=== PATIENT | male | born 1940 | race Hispanic/Latino ===

== ENCOUNTER 2018-02-12 22:44 | Inpatient (IN) | payer BC, MEDICARE ==
[~2018-02-12] VITALS: Ht 165.1 cm; Wt 55.8 kg
[~2018-02-12 22:44] MED LIST: ALFUZOSIN HCL10 MG; AVODART0.5 MG PO; [UNRECOGNIZED DRUG - OTHER] PO; [UNRECOGNIZED DRUG - OTHER] PO
[2018-02-12] MEDS ORDERED: ONDANSETRON HCL INJ 2 MG/ML VIAL IV STA (23:00)
[2018-02-12] MEDS ORDERED: PANTOPRAZOLE 40 MG 10ML VIAL IV STA (23:00)
[2018-02-12 23:13] LABS: BASOPHILS % 0.4 % (0.0-1.0); EOSINOPHILS # (AUTO) 0.2 (0.0-0.4); EOSINOPHILS % 1.8 % (0.0-6.0); HEMATOCRIT 38.2 % (38.2-49.6); HEMOGLOBIN 12.5 g/dL (14.0-18.0); LYMPHOCYTES # (AUTO) 2.2 (1.0-3.2); LYMPHOCYTES % 24.6 % (18.0-39.1); MEAN CORPUSCULAR HEMOGLOBIN 28.9 pg (28-32); MEAN CORPUSCULAR HGB CONC 32.7 g/dL (31-35); MEAN CORPUSCULAR VOLUME 88.4 fL (81-99); MONOCYTES # (AUTO) 0.7 (0.2-0.8); NEUTROPHILS # (AUTO) 5.9 (2.1-6.9); NEUTROPHILS % 64.9 % (38.7-80.0); PLATELET COUNT 188 x10e3/uL (140-360); RED BLOOD COUNT 4.32 x10e6/uL (4.3-5.7); RED CELL DISTRIBUTION WIDTH 14.2 % (11.7-14.4)
[2018-02-12 23:16] LABS: CLARITY,URINE CLEAR (CLEAR); COLOR,URINE YELLOW (YELLOW)
[2018-02-12 23:17] LABS: BILIRUBIN,URINE NEGATIVE (NEGATIVE); EPITHELIAL CELLS,URINE RARE /LPF; KETONES,URINE NEGATIVE (NEGATIVE); LEUKOCYTE ESTERASE ,URINE NEGATIVE (NEGATIVE); NITRITE,URINE NEGATIVE (NEGATIVE); PROTEIN,URINE DIPSTICK NEGATIVE (NEGATIVE); RBC,URINE 0-5 /HPF (0-5); URINE UROBILINOGEN 0.2 mg/dL (0.2 - 1); WBC,URINE (MAN) 0-5 /HPF (0-5)
[2018-02-12 23:26] LABS: ALANINE AMINOTRANSFERASE 11 IU/L (0-55); ALBUMIN 3.7 g/dL (3.5-5.0); ALBUMIN/GLOBULIN RATIO 1.1 (0.8-2.0); ALKALINE PHOSPHATASE 73 IU/L (40-150); AMYLASE 69 U/L (25-125); ANION GAP 12.8 mmol/L (8-16); BLOOD UREA NITROGEN 14 mg/dL (7-26); BUN/CREATININE RATIO 16 (6-25); CALCIUM 9.3 mg/dL (8.4-10.2); CARBON DIOXIDE 23 mmol/L (22-29); CHLORIDE 105 mmol/L (98-107); CREATININE, SERUM 0.89 mg/dL (0.72-1.25); EST GLOMERULAR FILTRATION RATE > 60 ML/MIN (60-); GLUCOSE 141 mg/dL (74-118); LIPASE 35 U/L (8-78); POTASSIUM 3.8 mmol/L (3.5-5.1); SODIUM 137 mmol/L (136-145)
[2018-02-12] MEDS ORDERED: DIATRIZOATE MEGL/DIATRIZOA SOD 30 ML BTL PO ONE (23:26)
[2018-02-13] MEDS ORDERED: SODIUM CHLORIDE 0.9% 50ML 50 ML ONE ×2 (00:13→01:16)
[2018-02-13] MEDS ORDERED: IOPAMIDOL 370 MG/ML 200 ML INFUS..BTL INJ ONE (00:13)
[2018-02-13] MEDS ORDERED: ONDANSETRON HCL INJ 2 MG/ML VIAL IV STA (01:01)
[2018-02-13] MEDS ORDERED: MORPHINE SULFATE 2 MG/ML SYR IV STA (01:01)
--- NOTE | 2018-02-13 01:09 | Diagnostic Imaging Report ---
EXAM: CT ABDOMEN AND PELVIS with IV CONTRAST DATE: 02/13/2018 12:00 AM Time stamp on Exam: 0027 hours INDICATION: Abdominal pain and nausea COMPARISON: None available TECHNIQUE: The abdomen and pelvis were scanned using a multidetector helical scanner. Coronal and sagittal reformations were obtained. Dose modulation, iterative reconstruction, and/or weight based adjustment of the mA/kV was utilized to reduce the radiation dose to as low as reasonably achievable. Routine protocol performed. IV Contrast: 100 cc Isovue-370 Oral Contrast: Gastrografin FINDINGS: LOWER THORAX: No consolidations LIVER: No masses BILIARY: The gallbladder is unremarkable. No ductal dilation. SPLEEN: No masses PANCREAS: No masses ADRENALS: No nodules KIDNEYS: Symmetric perfusion. No enhancing masses. No hydronephrosis. Cortical cyst measuring 1.1 cm superior pole of the right kidney. Simple cyst measuring 2.1 cm inferior pole of the left kidney. GI TRACT: The appendix is dilated to 1.3 cm with mild periappendiceal inflammatory changes. There is an appendicolith at its base. Remainder of the bowel is unremarkable. VESSELS: Unremarkable PERITONEUM/RETROPERITONEUM: No free air or fluid LYMPH NODES: No lymphadenopathy REPRODUCTIVE ORGANS: The prostate is enlarged and heterogeneous measuring 5.6 cm in transverse diameter. Partially visualized left hydrocele. BLADDER: There is either a bladder mass or protrusion of the prostate into the bladder base. SOFT TISSUES: Unremarkable BONES: No suspicious bone lesions. IMPRESSION: Acute appendicitis without evidence of perforation. This finding was discussed with Dr. Ledezma February 13, 2018 at 0100 hours. Additional finding of enlarged and heterogeneous prostate with protrusion into the bladder base versus separate posterior bladder mass. An ultrasound of the bladder is recommended when clinically feasible. Signed by: Dr. Daina Brice M.D. on 02/13/2018 1:06 AM
[2018-02-13] MEDS ORDERED: ACETAMINOPHEN 1000 MG/100 ML IV PRN (01:15)
[2018-02-13] MEDS ORDERED: MORPHINE SULFATE 2 MG/ML SYR IV PRN (01:15)
[2018-02-13] MEDS ORDERED: ONDANSETRON HCL INJ 2 MG/ML VIAL IV PRN (01:15)
[2018-02-13] MEDS: SODIUM CHLORIDE 0.9% 1000ML 1,000 ML IV SCH ×3 (01:24→22:22)
[2018-02-13] MEDS: PIPER-TAZ 3.375 GM 50 ML IV SCH ×4 (01:24→22:22)
--- OUTSIDE RECORDS SUMMARY | 2018-02-13 01:39 | XMS REPORT ---
Author Author [facility] Address Unknown Phone Unavailable Care Team Providers Care [place] Room Operator Name Role Phone Lashonda DAVIS Unavailable Unavailable Problems This patient has no known problems. Allergies, Adverse Reactions, Alerts This patient has no known allergies or adverse reactions. Medications This patient has no known medications. Results Test Description Test Time Test Comments Text Results Atomic Results Result Comments CT ABDOMEN/PELVIS W 2018-02-13 00:57:00 [place] [address] Patient Name: JULIOCESAR CASTILLO MR #: [id number] : 1940 Age/Sex: 77/M Req #: [id number] Adm Physician: Ordered by: CASE DAVIS MD Report #: [id number] Location: ER Room/Bed: Procedure: [id number] CT/CT ABDOMEN/PELVIS W Exam Date: Exam Time: REPORT STATUS: Signed EXAM: CT ABDOMEN AND PELVIS with IV CONTRAST DATE: 02/13/2018 12:00 AM Time stamp on Exam: 0027 hours INDICATION: Abdominal pain and nausea COMPARISON: None available TECHNIQUE: The abdomen and pelvis were scanned using a multidetector helical scanner. Coronal and sagittal reformations were obtained. Dose modulation, iterative reconstruction, and/or weight based adjustment of the mA/kV was utilized to reduce the radiation dose to as low as reasonably achievable. Routine protocol performed. IV Contrast: 100 cc Isovue-370 Oral Contrast: Gastrografin FINDINGS: LOWER THORAX: No consolidations LIVER: No masses BILIARY: The gallbladder is unremarkable. No ductal dilation. SPLEEN: No masses PANCREAS: No masses ADRENALS: No nodules KIDNEYS: Symmetric perfusion. No enhancing masses. No hydronephrosis. Cortical cyst measuring 1.1 cm superior pole of the right kidney. Simple cyst measuring 2.1 cm inferior pole of the left kidney. GI TRACT: The appendix is dilated to 1.3 cm with mild periappendiceal infl ammatory changes. There is an appendicolith at its base. Remainder of the bowel is unremarkable. VESSELS: Unremarkable PERITONEUM/RETROPERITONEUM: No free air or fluid LYMPH NODES: No lymphadenopathy REPRODUCTIVE ORGANS: The prostate is enlarged and heterogeneous measuring 5.6 cm in transverse diameter. Partially visualized left hydrocele. BLADDER: There is either a bladder mass or protrusion of the prostate into the bladder base. SOFT TISSUES: Unremarkable BONES: No suspicious bone lesions. IMPRESSION: Acute appendicitis without evidence of perforation. This finding was discussed with Dr. Davis February 13, 2018 at 0100 hours. Additional finding of enlarged and heterogeneous prostate with protrusion into the bladder base versus separate posterior bladder mass. An ultrasound of the bladder is recommended when clinically feasible. Signed by: Dr. Huseyin Brice M.D. on 02/13/2018 1:06 AM Dictated By: HUSEYIN BRICE MD 5 Transcribed By: JEANA on 02/13/18105 COPY TO: CASE DAVIS MD
[2018-02-13] MEDS ORDERED: ALFUZOSIN HCL10 MG PO (01:51)
[2018-02-13 02:52] VITALS: BP 144/69
[2018-02-13 05:22] VITALS: BP 153/73
[2018-02-13 08:00] VITALS: BP_SYST 131; BP_SYST 153; BP_DIAS 73; BP_DIAS 74
--- NOTE | 2018-02-13 11:09 | History and Physical ---
REFERRING PHYSICIAN: Dr. Ledezma. CHIEF COMPLAINT: Abdominal pain and difficulty urinating. HISTORY OF PRESENT ILLNESS: The patient is a 77-year-old man. He has a history of benign prostatic hypertrophy and takes medication for this. Yesterday, he noticed some pain in his back and upper abdomen that subsequently localized into the right lower quadrant. He also noted some difficulty urinating and small amounts of discolored urine. He does not complain of nausea or vomiting. He is not complaining of fevers. PAST MEDICAL HISTORY 1. History of cardiac evaluation last year that was normal. 2. Benign prostatic hypertrophy. PAST SURGICAL HISTORY: History of transurethral prostate resection. SOCIAL HISTORY: The patient quit smoking several years ago because he fell asleep while smoking. He was never a heavy smoker. He does not drink. FAMILY HISTORY: Significant for hypertension. REVIEW OF SYSTEMS: The patient denies any fevers. He is not complaining of headache or neck pain. There is no sore throat. He does not complain of chest pain or difficulty breathing. He does have some lower abdominal pain. He has some difficulty urinating. There are no focal neurological complaints. PHYSICAL EXAMINATION VITAL SIGNS: Patient is afebrile. Vital signs are stable. HEENT: Shows no facial swelling or erythema. The nasal mucosa is normal. The oropharynx is normal. LYMPHATIC: Shows no submandibular, cervical, or superficial adenopathy. CARDIOVASCULAR: Reveals regular rate and rhythm with normal S1 and S2. There are no murmurs or rubs. LUNGS: Auscultation of lungs reveals clear breath sounds bilaterally. There is no wheezing. ABDOMEN: Soft. There is some mild distention. There is tenderness in the right lower quadrant. There is no CVA tenderness. EXTREMITIES: Show no leg edema. NEUROLOGIC: Shows no focal abnormalities. RADIOGRAPHIC DATA: CT scan of the abdomen and pelvis shows acute appendicitis. There is also an enlarged prostate. LABORATORY DATA: BUN to creatinine ratio is normal. The electrolytes are within normal limits. IMPRESSION 1. Acute appendicitis. 2. Benign prostatic hypertrophy. PLAN 1. Patient was seen by surgery and has been scheduled for appendectomy. 2. Continue current antibiotics. 3. Await final culture results. Job#: [id number] SUB
[2018-02-13] MEDS ORDERED: KETOROLAC TROMETHAMINE 30 MG/ML VIAL ONE (11:53)
[2018-02-13] MEDS ORDERED: SEVOFLURANE INHAL SOLN 250 ML PEN BTL ONE (11:53)
[2018-02-13] MEDS ORDERED: ONDANSETRON HCL INJ 2 MG/ML VIAL ONE (11:53)
[2018-02-13] MEDS ORDERED: NEOSTIGMINE 5 MG/5ML SYR ONE (11:53)
[2018-02-13] MEDS ORDERED: LIDOCAINE HCL 2% LOCAL INJ 5 ML SDV VIAL INJ ONE (11:53)
[2018-02-13] MEDS ORDERED: DEXAMETHASONE SOD PHOS INJ 4 MG/ML VIAL ONE (11:53)
[2018-02-13] MEDS ORDERED: PROPOFOL IV EMULSION 10 MG/ML 20 ML VIAL ONE (11:53)
[2018-02-13] MEDS ORDERED: GLYCOPYRROLATE INJ 1MG/ 5 ML SYR ONE (11:53)
[2018-02-13] MEDS ORDERED: ROCURONIUM BROMIDE 10 MG/ML 5ML VIAL ONE (11:53)
[2018-02-13 12:00] VITALS: BP 128/82
--- NOTE | 2018-02-13 12:57 | Consultation ---
DATE OF CONSULTATION: February 13, 2018 CHIEF COMPLAINT: Abdominal pain. HISTORY OF PRESENT ILLNESS: The patient is 77-year-old male with 1 day history of pain in the right lower quadrant with nausea. No vomiting. No fever, chills, or diarrhea. PAST MEDICAL HISTORY: Negative for any chronic illness except BPH. PAST SURGICAL HISTORY: Positive for right inguinal hernia repair. ALLERGIES: HE HAS NO DRUG ALLERGIES. SOCIAL HABITS: The patient denies smoking or alcohol abuse. REVIEW OF SYSTEMS: No chest pain. He has some pain in the lower extremity, not associated with ambulation. PHYSICAL EXAMINATION VITAL SIGNS: Stable. He is afebrile. GENERAL: He is awake, alert and in mild discomfort. HEENT: Sclerae anicteric. NECK: Supple. LUNGS: Clear. HEART: Regular rate and rhythm. ABDOMEN: Soft with some guarding tenderness in the right lower quadrant with no rebound. EXTREMITIES: No cyanosis, edema. LABORATORY DATA: White cell count is 9, hemoglobin of 12. Creatinine is 0.9. IMAGING: CT of the abdomen showed 1.3 cm appendix with mild inflammatory stranding with fecalith. ASSESSMENT: Acute appendicitis. PLAN: Recommended laparoscopic appendectomy. Attendant risks discussed with patient. Job#: [id number] RAFY
[2018-02-13] MEDS ORDERED: BUPIVACAINE 0.25%/EPI 30ML SDV INJ ONE (15:16)
[2018-02-13] MEDS ORDERED: ACETAMINOPHEN/CODEINE 300MG - 30MG TAB PO PRN (17:00)
[2018-02-13] MEDS ORDERED: CEFOXITIN SOD 1 GM VIAL ONE (17:18)
[2018-02-13 20:00] VITALS: BP 150/67
--- NOTE | 2018-02-14 00:52 | Operative Report ---
PREOPERATIVE DIAGNOSIS: Acute appendicitis. POSTOPERATIVE DIAGNOSIS: Acute appendicitis. OPERATIVE PROCEDURE: Laparoscopic appendectomy. ANESTHESIA: General, Dr. Singh. INDICATIONS: A 77-year-old male with 1-day history of pain in the right lower quadrant with CT scan showing mesoappendix. Patient consented for laparoscopic appendectomy. Attendant risks discussed. PROCEDURE FINDINGS: Acute appendicitis. DESCRIPTION OF PROCEDURE: The patient was brought to the OR and intubated. Abdomen prepped with alcohol and draped in sterile fashion. A supraumbilical incision was made and an umbilical hernia was used for access of a 12-mm port, insufflation then begun. Under direct vision, all the ports were placed suprapubic and right upper quadrant. Appendix noted to be grossly inflamed but non-perforated. The mesoappendix controlled with LigaSure instrument down to the neck of the appendix. We then used an EndoGIA stapler blue load to transect the neck of appendix and flush the base of the cecum. The appendix was placed in Endopouch and retrieved out the peritoneal cavity. Operative field irrigated, hemostasis achieved. All ports were removed under direct vision. Fascial closure with #0 Vicryl. Skin closed with subcuticular stitch. Patient was extubated and transported to recovery room. Estimated blood loss was 4 mL. Job#: [id number] [place]
[2018-02-14 00:58] VITALS: BP 116/59
[2018-02-14 04:00] VITALS: BP 128/70
[2018-02-14] MEDS: PIPER-TAZ 3.375 GM 50 ML IV SCH ×2 (05:35→14:47)
[2018-02-14 05:56] LABS: BASOPHILS % 0.1 % (0.0-1.0); HEMATOCRIT 37.8 % (38.2-49.6); HEMOGLOBIN 12.1 g/dL (14.0-18.0); LYMPHOCYTES # (AUTO) 0.6 (1.0-3.2); LYMPHOCYTES % 8.1 % (18.0-39.1); MEAN CORPUSCULAR HEMOGLOBIN 28.8 pg (28-32); MONOCYTES # (AUTO) 0.3 (0.2-0.8); MONOCYTES % 3.5 % (4.4-11.3); NEUTROPHILS # (AUTO) 6.5 (2.1-6.9); PLATELET COUNT 155 x10e3/uL (140-360); RED CELL DISTRIBUTION WIDTH 14.9 % (11.7-14.4)
[2018-02-14 06:12] LABS: ALANINE AMINOTRANSFERASE 23 IU/L (0-55); ALBUMIN 3.1 g/dL (3.5-5.0); ALBUMIN/GLOBULIN RATIO 0.9 (0.8-2.0); ALKALINE PHOSPHATASE 55 IU/L (40-150); ANION GAP 12.2 mmol/L (8-16); BLOOD UREA NITROGEN 12 mg/dL (7-26); BUN/CREATININE RATIO 12 (6-25); CALCIUM 8.4 mg/dL (8.4-10.2); CARBON DIOXIDE 22 mmol/L (22-29); CHLORIDE 109 mmol/L (98-107); CREATININE, SERUM 1.01 mg/dL (0.72-1.25); EST GLOMERULAR FILTRATION RATE > 60 ML/MIN (60-); GLUCOSE 124 mg/dL (74-118); POTASSIUM 4.2 mmol/L (3.5-5.1); SODIUM 139 mmol/L (136-145)
[2018-02-14 08:00] VITALS: BP 128/70
[2018-02-14] MEDS: SODIUM CHLORIDE 0.9% 1000ML 1,000 ML IV SCH (08:13)
[2018-02-14 08:30] VITALS: BP 144/64
[2018-02-14] MEDS ORDERED: FENTANYL CITRATE/PF 100MCG/2 ML INJ ONE (12:00)
[2018-02-14 12:39] VITALS: BP 133/62
[2018-02-14] MEDS ORDERED: MORPHINE SULFATE INJ 4 MG/ML INJ IV PRN (15:00)
--- NOTE | 2018-02-14 17:04 | Discharge Summary ---
DISCHARGE DIAGNOSES 1. Appendicitis. 2. Prostatic hypertrophy. CONSULTING PHYSICIANS: Dr. Wei of general surgery. PROCEDURES: Appendectomy. HISTORY OF PRESENT ILLNESS: The patient is a 77-year-old man with a history of prostatic hypertrophy and a prior TURP. He came in complaining of abdominal pain that was poorly localized, but it became more intense in the right lower quadrant over the prior 24 hours. He did not note any fever. He did complain of some difficulty urinating. HOSPITAL COURSE: On admission a CT scan showed acute appendicitis. He was started on IV antibiotics and was subsequently seen by General Surgery. He underwent a laparoscopic cholecystectomy the next day. He felt much better and was subsequently able to go home. DISPOSITION: The patient will go home and will follow up with Dr. Wei. MADDY PIZARRO MD Job#: [id number] EV
[2018-02-14 17:25] VITALS: BP 159/72
== END 2018-02-14 17:52 | disposition home or self-care (01) | DRG 343 ==
LOC: ER 22:44 → ERHOLD 02-13 01:10 → MED/SURG 02-13 02:04
PROVIDERS: ADMIT Internal Medicine Critical Care Medicine; ATTEND Internal Medicine Critical Care Medicine
PROC: 0DTJ4ZZ Resection of Appendix, Percutaneous Endoscopic Approach (ICD-10-PCS; principal; 2018-02-13 16:00)
DX: K35.80 Unspecified acute appendicitis (principal); N40.0 Benign prostatic hyperplasia without lower urinary tract symptoms; Z87.891 Personal history of nicotine dependence
CPT/HCPCS: 36415; 74177; 80053; 81001; 82150; 83690; 85025; 88304; 93005; 96374; 99284; J0694; J1100; J1885; J2001; J2270; J2405; J2543; J7030; Q9967